=== PATIENT | female | born 1950 | race Caucasian/White ===

== ENCOUNTER 2024-10-10 07:44 | Day surgery (SDC) | payer BC, MEDICARE ==
[2024-10-10] MEDS: Lactated Ringers 1,000 ML IV SCH (08:07)
[2024-10-10] MEDS ORDERED: Propofol 200 MG/20 ML SDV ONE ×2 (10:12→10:44)
[2024-10-10] MEDS ORDERED: fentaNYL 100 MCG/2 ML SDV ONE (10:12)
[2024-10-10] MEDS ORDERED: Atropine 0.4 MG/ML SDV ONE (10:26)
== END 2024-10-10 12:24 | disposition home or self-care (01) ==
LOC: VM.SDS 07:44
PROVIDERS: ATTEND Student in an Organized Health Care Education/Training Program
DX: D12.0 Benign neoplasm of cecum (principal); D12.3 Benign neoplasm of transverse colon; Z86.0100 Personal history of colon polyps, unspecified; I10 Essential (primary) hypertension; E78.00 Pure hypercholesterolemia, unspecified; M81.0 Age-related osteoporosis without current pathological fracture; E66.9 Obesity, unspecified; Z68.31 Body mass index [BMI] 31.0-31.9, adult; Z79.82 Long term (current) use of aspirin; Z79.899 Other long term (current) drug therapy
CPT/HCPCS: 00811; 88305; 99100; J0461; J2704; J3010; J7120